=== PATIENT | female | born 1945 | race Caucasian/White ===

== ENCOUNTER → 2023-11-10 10:24 | Outpatient (REF) | payer MEDICARE, SELFPAY | LOC: RAD 10:24 | PROVIDERS: ATTENDING PHYSICIAN Family Medicine | DX: R06.02 Shortness of breath (principal) | CPT/HCPCS: 71046 ==

== ENCOUNTER → 2024-03-21 07:47 | Outpatient (REF) | payer MEDICARE, SELFPAY ==
[2024-03-21 08:00] VITALS: BP 124/73; BP_SYST 74
[2024-03-21 08:50] VITALS: BP 124/73
== END ==
LOC: RADI 07:47
PROVIDERS: ATTENDING PHYSICIAN Nurse Practitioner Family; FAMILY PHYSICIAN Family Medicine
DX: C50.212 Malignant neoplasm of upper-inner quadrant of left female breast (principal)
CPT/HCPCS: 36573; 85025; C1751

== ENCOUNTER → 2024-05-31 13:13 | Outpatient (REF) | payer MEDICARE, SELFPAY | LOC: HWRAD 13:13 | PROVIDERS: ATTENDING PHYSICIAN Internal Medicine Hematology & Oncology; FAMILY PHYSICIAN Family Medicine | DX: C50.212 Malignant neoplasm of upper-inner quadrant of left female breast (principal); D64.9 Anemia, unspecified; D50.9 Iron deficiency anemia, unspecified; D51.9 Vitamin B12 deficiency anemia, unspecified; R53.83 Other fatigue; R53.1 Weakness; D52.9 Folate deficiency anemia, unspecified | CPT/HCPCS: 76536 ==

== ENCOUNTER → 2024-09-07 09:20 | Outpatient (REF) | payer MEDICARE, SELFPAY | LOC: HWRAD 09:20 | PROVIDERS: ATTENDING PHYSICIAN Family Medicine | DX: M85.89 Other specified disorders of bone density and structure, multiple sites (principal) | CPT/HCPCS: 77080 ==

== ENCOUNTER → 2024-09-19 13:44 | Outpatient (REF) | payer MEDICARE, SELFPAY | LOC: RCS 13:44 | PROVIDERS: ATTENDING PHYSICIAN Nurse Practitioner; FAMILY PHYSICIAN Family Medicine | DX: I50.20 Unspecified systolic (congestive) heart failure (principal) | CPT/HCPCS: 93306 ==

== ENCOUNTER → 2024-12-20 08:56 | Outpatient (REF) | payer MEDICARE, SELFPAY ==
[2024-12-20 09:16] VITALS: BP 133/75; BP_SYST 77
[2024-12-20 10:22] VITALS: BP 126/70; BP_SYST 90
--- NOTE | 2024-12-20 13:57 | PTCARENOTE ---
patient returned for PICC line removal. Left arm picc removed by Iliana RTR. sterile dressing placed. patient instructed to keep dressing on x 24hs.
== END ==
LOC: RADI 08:56
PROVIDERS: ATTENDING PHYSICIAN Nurse Practitioner Primary Care; FAMILY PHYSICIAN Family Medicine; REFERRING PHYSICIAN Internal Medicine Hematology & Oncology
DX: C50.212 Malignant neoplasm of upper-inner quadrant of left female breast (principal)
CPT/HCPCS: 36573; C1751

== ENCOUNTER → 2025-02-28 07:58 | Outpatient (REF) | payer MEDICARE, SELFPAY ==
[2025-02-28 08:18] VITALS: BP 98/70; BP_SYST 73
[2025-02-28 17:47] LABS: % Basophils 1.1 % (0-2); % Immature Granulocytes 0.2 % (0-0.5); % Lymphocytes 20.4 % (20.5-51.1); % Monocytes 12.2 % (1.7-9.3); % Neutrophils 66.1 % (42.2-75.2); Absolute Basophils 0.1 10^3/uL (0-0.2); Absolute Lymphocytes 0.9 10^3/uL (1.2-3.4); Absolute Monocytes 0.6 10^3/uL (0.1-0.6); Hematocrit 27.5 % (37.0-47.0); Hemoglobin 9.1 g/dL (12.0-16.0); Mean Corp Hgb Conc. 33.1 g/dL (33.0-37.0); Mean Corpuscular Hgb 29.4 pg (27.0-31.0); Mean Corpuscular Volume 88.7 fL (81.0-99.0); Nucleated Red Blood Cells % 0 %; Platelet Count 268 10^3/uL (130-400); Red Cell Dist. Width 14.6 % (11.5-14.5); White Blood Cell Count 4.5 10^3/uL (4.8-10.8)
== END ==
LOC: RADI 07:58
PROVIDERS: ATTENDING PHYSICIAN Internal Medicine Hematology & Oncology; FAMILY PHYSICIAN Family Medicine
DX: C50.212 Malignant neoplasm of upper-inner quadrant of left female breast (principal)
CPT/HCPCS: 36573; 85025; C1751

== ENCOUNTER → 2025-04-17 13:37 | Outpatient (REF) | payer MEDICARE, SELFPAY | LOC: RAD 13:37 | PROVIDERS: ATTENDING PHYSICIAN Family Medicine | DX: M25.462 Effusion, left knee (principal) | CPT/HCPCS: 73564 ==

== ENCOUNTER → 2025-07-30 10:34 | Outpatient (REF) | payer MEDICARE, SELFPAY | LOC: RAD 10:34 | PROVIDERS: ATTENDING PHYSICIAN Internal Medicine Cardiovascular Disease; FAMILY PHYSICIAN Family Medicine | DX: I42.9 Cardiomyopathy, unspecified (principal); Z95.5 Presence of coronary angioplasty implant and graft; I25.10 Atherosclerotic heart disease of native coronary artery without angina pectoris; I50.20 Unspecified systolic (congestive) heart failure | CPT/HCPCS: 71046 ==